=== PATIENT | female | born 1955 | race Caucasian/White ===

== ENCOUNTER 2024-07-06 14:00 | Outpatient (CLI) | payer OTHER, MEDICARE | END 2024-07-06 14:01 | disposition home or self-care (01) | LOC: BICCT 14:00 | PROVIDERS: ATTEND Urology | DX: E21.3 Hyperparathyroidism, unspecified (principal); E04.1 Nontoxic single thyroid nodule; R94.6 Abnormal results of thyroid function studies | CPT/HCPCS: 36415; 70492; 82565 ==